=== PATIENT | male | born 1955 | race Caucasian/White ===

== ENCOUNTER 2023-02-28 00:18 | Day surgery (SDC) | payer MEDICARE, SELFPAY ==
[2023-02-08 13:50] VITALS: BMI 31.1
--- NOTE | 2023-02-26 08:27 | SUR.PREOP ---
Patient called regarding upcoming procedure. Reviewed preop instructions, appointment times, and procedure prep.
--- NOTE | 2023-02-26 13:54 | PM.HPGS ---
History of Present Illness History of Present Illness Consent: Risks, benefits, and alternatives have been discussed and questions answered. Patient agrees to proceed with procedure. Chief complaint: Personal h/o colonic polyps Narrative: Ferdinand Cheung is a 67 year old male referred for colon cancer screening. He has a history of polyps. His most recent exam was 5 years ago when he had a small polyp removed. Review of Systems Review of Systems: All systems reviewed & are unremarkable except as noted in HPI and below PMFSH Past Medical History Medical History 1st degree AV block Benign essential hypertension Blood donor BMI 30.0-30.9,adult BMI 31.0-31.9,adult Bradycardia DJD (degenerative joint disease), multiple sites Elevated serum creatinine Encounter for Medicare annual wellness exam Encounter for preventive health examination Encounter for routine adult health examination without abnormal findings Exposure to benzene Hearing loss Hx of colonic polyps Hx of headache Hyperlipidemia Hypothyroidism (acquired) Iron deficiency anemia Migraines Nevus On long-term drug therapy Right hip pain Soft tissue mass Tick bite Trigger finger of right hand Visual changes Vitamin D deficiency Surgical History Surgical History Hx of repair of rotator cuff Status post total replacement of right shoulder Family History Family History Mother Family history of primary malignant neoplasm of liver Grandparent Asthma Other Family history of malignant neoplasm of brain Social History Social History Smoking status: Never smoker Second hand tobacco smoke exposure: No Alcohol intake: never Alcohol use details: rare occasional Substance use: never Substance use type: does not use Lack of Transportation: No Lack of Food: Never True Current Housing: I Have Housing Concerned About Future Housing: No Difficulty Paying Gas/Electric Bills: No Difficulty Paying for Meds: No Currently Unemployed: No Education: Trade/Vocational Certificate Difficulty w/ Childcare or Family Care: No Living arrangements: with family Occupation/Education: retired Gender identity (if verbalized by the patient): Male Spiritual care concerns: No Meds Home Medications and Allergies Home Medications Medication Instructions Recorded Confirmed Type aspirin 81 mg tablet,delayed 81 mg PO DAILY 02/18/19 02/08/23 History release (Adult Low Dose Aspirin) multivitamin 1 tablet PO DAILY 02/18/19 02/08/23 History calcium carbonate 600 mg-vitamin 1 cap PO DAILY 07/21/19 02/08/23 History D3 12.5 mcg (500 unit) capsule (Calcium 600 with Vitamin D3) ascorbic acid (vitamin C) 1,000 mg 1 g PO DAILY 03/15/20 02/08/23 History tablet cholecalciferol (vitamin D3) 50 50 mcg PO DAILY 12/09/20 02/08/23 History mcg (2,000 unit) capsule omega-3 fatty acids 1,000 mg 2,000 mg PO BID 12/09/20 02/08/23 History capsule (Fish Oil Concentrate) levothyroxine 125 mcg tablet 125 mcg PO DAILY #90 tabs 03/27/22 02/08/23 Rx rosuvastatin 10 mg tablet (Crestor) 10 mg PO DAILY #90 tabs 03/27/22 02/08/23 Rx epinephrine 0.3 mg/0.3 mL 0.3 mg (0.3 mL) IM ONCE PRN 07/05/22 02/08/23 Rx injection, auto-injector (EpiPen hypersensitivity reaction #2 ea 2-Robbie) diltiazem HCl 240 mg capsule,24 See Rx Instructions .Route 01/01/23 02/08/23 Rx hr,extended release .COMPLEX #90 caps ferrous sulfate 325 mg (65 mg 325 mg PO DAILY 02/08/23 02/08/23 History iron) tablet Allergies Allergy/AdvReac Type Severity Reaction Status Date / Time Shrimp Allergy Unknown HIVES Uncoded 02/08/23 14:11 Exam Const: General: alert Orientation/consciousness: patient oriented x3 Resp: Auscultation: clear to auscultation
[2023-02-28 06:19] VITALS: BP 139/69; PULSE 50; RESP 18; TEMP 36.3; O2SAT 100; BMI 31.9
[2023-02-28] MEDS: LACTATED RINGERS 1,000 ML 150 ML IV CONT (06:32)
--- NOTE | 2023-02-28 07:06 | WPDANESEPPF ---
Anes - Initial Pre Proc Eval Procedure: Operation Date: 02/28/23 07:30 Proposed Procedures p Screening Colonoscopy - Dillan Dee MD Date/Time: 02/28/23 07:06 Surgeon: Dillan Dee MD Pre Op Diagnosis: Personal h/o colonic polyps Patient Data Age: 67 Gender: M Height: 1.73 m Weight: 95.4 kg Last Vital Signs Temp 36.3 C L 02/28/23 06:19 Pulse 50 L 02/28/23 06:19 Resp 18 02/28/23 06:19 BP 139/69 02/28/23 06:19 Pulse Ox 100 02/28/23 06:19 O2 Del Method Room Air 02/28/23 06:19 Allergies Allergy/AdvReac Type Severity Reaction Status Date / Time Shrimp Allergy Unknown HIVES Uncoded 02/08/23 14:11 Home Medications Medication Instructions Recorded Confirmed Type aspirin 81 mg tablet,delayed 81 mg PO DAILY 02/18/19 02/08/23 History release (Adult Low Dose Aspirin) multivitamin 1 tablet PO DAILY 02/18/19 02/08/23 History calcium carbonate 600 mg-vitamin 1 cap PO DAILY 07/21/19 02/08/23 History D3 12.5 mcg (500 unit) capsule (Calcium 600 with Vitamin D3) ascorbic acid (vitamin C) 1,000 mg 1 g PO DAILY 03/15/20 02/08/23 History tablet cholecalciferol (vitamin D3) 50 50 mcg PO DAILY 12/09/20 02/08/23 History mcg (2,000 unit) capsule omega-3 fatty acids 1,000 mg 2,000 mg PO BID 12/09/20 02/08/23 History capsule (Fish Oil Concentrate) levothyroxine 125 mcg tablet 125 mcg PO DAILY #90 tabs 03/27/22 02/08/23 Rx rosuvastatin 10 mg tablet (Crestor) 10 mg PO DAILY #90 tabs 03/27/22 02/08/23 Rx epinephrine 0.3 mg/0.3 mL 0.3 mg (0.3 mL) IM ONCE PRN 07/05/22 02/08/23 Rx injection, auto-injector (EpiPen hypersensitivity reaction #2 ea 2-Robbie) diltiazem HCl 240 mg capsule,24 See Rx Instructions .Route 01/01/23 02/08/23 Rx hr,extended release .COMPLEX #90 caps ferrous sulfate 325 mg (65 mg 325 mg PO DAILY 02/08/23 02/08/23 History iron) tablet Patient hx anesthesia problems: none Family hx anesthesia problems: none Results Review: All pre-operative results and documents have been reviewed as part of the pre-operative evaluation. [facility] Past Medical History Medical History 1st degree AV block Benign essential hypertension Blood donor BMI 30.0-30.9,adult BMI 31.0-31.9,adult Bradycardia DJD (degenerative joint disease), multiple sites Elevated serum creatinine Encounter for Medicare annual wellness exam Encounter for preventive health examination Encounter for routine adult health examination without abnormal findings Exposure to benzene Hearing loss Hx of colonic polyps Hx of headache Hyperlipidemia Hypothyroidism (acquired) Iron deficiency anemia Migraines Nevus On terminal supervisor drug therapy Right hip pain Soft tissue mass Tick bite Trigger finger of right hand Visual changes Vitamin D deficiency Surgical History Surgical History Hx of repair of rotator cuff Status post total replacement of right shoulder Family History Family History Mother Family history of primary malignant neoplasm of liver Grandparent Asthma Other Family history of malignant neoplasm of brain Social History Social History Smoking status: Never smoker Second hand tobacco smoke exposure: No Alcohol intake: never Alcohol use details: rare occasional Substance use: never Substance use type: does not use Lack of Transportation: No Lack of Food: Never True Current Housing: I Have Housing Concerned About Future Housing: No Difficulty Paying Gas/Electric Bills: No Difficulty Paying for Meds: No Currently Unemployed: No Education: Trade/Vocational Certificate Difficulty w/ Childcare or Family Care: No Living arrangements: with family Occupation/Education: retired Gender identity (if verbalized by the rubia
[2023-02-28 07:40] VITALS: BP 97/52; PULSE 39; RESP 15; O2SAT 100
[2023-02-28 07:49] VITALS: BP 118/53; PULSE 43; RESP 17; O2SAT 100
[2023-02-28 07:59] VITALS: BP 116/60; PULSE 37; RESP 14; O2SAT 100
--- NOTE | 2023-02-28 08:09 | SUR.PHASEII ---
Requested Dr. Thomason to bedside, patient HR in the 30's. Patient is in sinus bradycardia with P waves present. Per Dr. Thomason, ok to discharge patient if asymptomatic getting up to chair. Patient HR 40 BP 119/63 after getting up to chair. Patient voices no complaints at this time.
== END 2023-02-28 08:14 | disposition home or self-care (01) ==
PROVIDERS: PCP Internal Medicine; Visit Provider Internal Medicine Gastroenterology
PROC: 0DJD8ZZ Inspection of Lower Intestinal Tract, Via Natural or Artificial Opening Endoscopic (ICD-10-PCS; CPT 45378; principal; 2023-02-28 07:30)
DX: Z12.11 Encounter for screening for malignant neoplasm of colon (principal); K57.30 Diverticulosis of large intestine without perforation or abscess without bleeding; Z86.010 Personal history of colon polyps; I44.0 Atrioventricular block, first degree; E03.9 Hypothyroidism, unspecified; I10 Essential (primary) hypertension; E78.5 Hyperlipidemia, unspecified; D50.9 Iron deficiency anemia, unspecified; E55.9 Vitamin D deficiency, unspecified; Z79.82 Long term (current) use of aspirin; E66.9 Obesity, unspecified; Z68.32 Body mass index [BMI] 32.0-32.9, adult
CPT/HCPCS: G0105; J2704; J7120

== ENCOUNTER 2023-04-11 08:24 | Outpatient (CLI) | payer MEDICARE, SELFPAY ==
--- NOTE | 2023-04-11 08:41 | ECHO_ITS ---
Patient Info Name: Ferdinand Cheung Age: 67 years : 1955 Gender: Male Ht: 68 in Wt: 218 lbs BSA: 2.21 m2 HR: 40 bpm BP: 139 / 69 mmHg Heart Rhythm: Bradycardia Technical Quality: Good Exam Date: 04/11/2023 8:53 AM Exam Location: Echo Lab Patient Status: Outpatient Admit Date: 04/11/2023 Staff Ordering Physician: Kris Valerio MD Attending Provider: Kris Valerio MD Referring Physician: Iman SHAW; Exam Type: CA echo doppler color flow Study Info Indications R94.31 - Abnormal electrocardiogram ECG EKG Complete two-dimensional, color flow and Doppler transthoracic echocardiogram is performed. Summary 1. Complete two-dimensional, color flow and Doppler transthoracic echocardiogram is performed. 2. Left ventricular chamber dimension is normal. 3. Left ventricular systolic function is normal, estimated at 60-65%. 4. There is mild concentric increased left ventricular wall thickness. 5. The left ventricular diastolic function is grade I diastolic dysfunction. 6. E/e' 7 is not elevated. 7. Left atrial chamber dimension is mildly enlarged. 8. There is mild mitral valve regurgitation. 9. There is trace pulmonic regurgitation. Left Ventricle E/e' 7 is not elevated. Left ventricular chamber dimension is normal. Left ventricular systolic function is normal, estimated at 60-65%. There is mild concentric increased left ventricular wall thickness. The left ventricular diastolic function is grade I diastolic dysfunction. Right Ventricle Right ventricular chamber dimension is normal. Right ventricular systolic function is normal. Left Atria Left atrial chamber dimension is mildly enlarged. Right Atria Right atrial chamber dimension is normal. Aortic Valve The aortic valve is trileaflet. There is no aortic valve stenosis. There is no aortic valve regurgitation. Pulmonic Valve There is trace pulmonic regurgitation. Mitral Valve There is no mitral valve stenosis. There is mild mitral valve regurgitation. Tricuspid Valve There is no tricuspid valve regurgitation. Pericardium/Pleural There is no pericardial effusion. Inferior Vena Cava Normal inferior vena cava with >50% collapse upon inspiration consistent with normal right atrial pressure, 5 mmHg. Aorta The aortic root size at the sinus of Valsalva is normal. Left Ventricular Outflow Tract Name Value Normal LVOT 2D LVOT Diameter 2.5 cm LVOT Doppler LVOT Peak Gradient 3 mmHg LVOT Mean Gradient 1 mmHg LVOT VTI 20 cm LVOT VTI/AV VTI Ratio 0.6 LVOT Stroke Volume 99 ml LVOT CO 3.7 l/min LVOT CI 1.7 l/min/m2 Pulmonic Valve Name Value Normal PV Doppler PV Peak Gradient 4 mmHg PV Regurgitation Doppler
--- NOTE | 2023-04-11 11:00 | NEURO_ITS ---
Impression: # Complains of numbness of hands. ? # Bilateral mild Carpal Tunnel Syndrome # No ulnar neuropathy. ? # Needle/EMG exam mildly abnormal. Nerve Conduction Studies Anti Sensory Summary Table Stim Site NR Peak (ms) P-T Amp (?V) Site1 Site2 Delta-P (ms) Dist (cm) Tyrel (m/s) Left Median Anti Sensory (2-3nd Digit) Wrist 3.4 26.4 Wrist 2-3nd Digit 3.4 14.0 41 Wrist 3.5 39.2 Wrist 2-3nd Digit 3.4 14.0 41 Right Median Anti Sensory (2-3nd Digit) Wrist 3.4 16.5 Wrist 2-3nd Digit 3.4 14.0 41 Wrist 3.5 25.3 Wrist 2-3nd Digit 3.4 14.0 41 Left Radial Anti Sensory (Base 1st Digit) Wrist 2.0 15.0 Wrist Base 1st Digit 2.0 0.0 Right Radial Anti Sensory (Base 1st Digit) Wrist 2.4 13.6 Wrist Base 1st Digit 2.4 0.0 Left Ulnar Anti Sensory (5th Digit) Wrist 2.7 32.0 Wrist 5th Digit 2.7 14.0 52 Right Ulnar Anti Sensory (5th Digit) Wrist 2.6 17.5 Wrist 5th Digit 2.6 14.0 54 Motor Summary Table Stim Site NR Onset (ms) O-P Amp (mV) Site1 Site2 Delta-0 (ms) Dist (cm) Tyrel (m/s) Left Median Motor (Abd Poll Brev) Wrist 4.1 3.9 Elbow Wrist 5.5 32.0 58 Elbow 9.6 2.4 Right Median Motor (Abd Poll Brev) Wrist 4.3 2.1 Elbow Wrist 5.2 30.0 58 Elbow 9.5 1.6 Left Ulnar Motor (Abd Dig Minimi) Wrist 2.5 5.5 A Elbow Wrist 5.5 32.0 58 A Elbow 8.0 4.5 Right Ulnar Motor (Abd Dig Minimi) Wrist 2.3 5.1 A Elbow Wrist 5.8 33.0 57 A Elbow 8.1 4.5 F Wave Studies NR F-Lat (ms) L-R F-Lat (ms) Left Median (Mrkrs) (Abd Poll Brev) 30.38 0.34 Right Median (Mrkrs) (Abd Poll Brev) 30.04 0.34 Left Ulnar (Mrkrs) (Abd Dig Min) 30.25 0.91 Right Ulnar (Mrkrs) (Abd Dig Min) 29.34 0.91 EMG Side Muscle Nerve Root Ins Act Fibs Amp Dur Recrt Comment Right 1stDorInt Ulnar C8-T1 Nml Nml Nml Nml Nml Right Ext Indicis Radial (Post Int) C7-8 Nml Nml Nml Nml Nml Right Ext Digitorum Radial (Post Int) C7-8 Nml Nml Nml Nml Nml Right BrachioRad Radial C5-6 Nml Nml Nml Nml Nml Right PronatorTeres Median C6-7 Nml Nml Nml Nml Nml Right Abd Poll Brev Median C8-T1 Nml Nml Nml >12ms Reduced Left 1stDorInt Ulnar C8-T1 Nml Nml Nml Nml Nml Left Ext Indicis Radial (Post Int) C7-8 Nml Nml Nml Nml Nml Left Ext Digitorum Radial (Post Int) C7-8 Nml Nml Nml Nml Nml Left BrachioRad Radial C5-6 Nml Nml Nml Nml Nml Left PronatorTeres Median C6-7 Nml Nml Nml Nml Nml Left Abd Poll Brev Median C8-T1 Nml Nml Nml 12ms Reduced MTDD
== END 2023-04-11 08:25 | disposition home or self-care (01) ==
LOC: ANHCARD 08:26
PROVIDERS: PCP Internal Medicine; Visit Provider Internal Medicine
DX: G56.03 Carpal tunnel syndrome, bilateral upper limbs (principal); R29.898 Other symptoms and signs involving the musculoskeletal system; I45.10 Unspecified right bundle-branch block; R94.31 Abnormal electrocardiogram [ECG] [EKG]
CPT/HCPCS: 93306; 95886; 95911

== ENCOUNTER 2023-07-11 06:52 | Outpatient (CLI) | payer MEDICARE, SELFPAY ==
--- NOTE | ~2023-07-11 | XR_ITS ---
Right Knee Technique: AP, lateral, and sunrise views were obtained. Clinical History: Pain Findings: No fracture or dislocation is seen. Osseous alignment is anatomic. Minimal degenerative spu rring noted. Soft tissues are unremarkable. No joint effusion is seen. Impression: Minimal degenerative spurring.. Reviewed, dictated and finalized at location . Impression: Minimal degenerative spurring..
== END 2023-07-11 06:53 | disposition home or self-care (01) ==
PROVIDERS: PCP Internal Medicine; Visit Provider Internal Medicine
DX: M25.761 Osteophyte, right knee (principal); M25.562 Pain in left knee
CPT/HCPCS: 73562

== ENCOUNTER 2023-09-11 08:45 | Outpatient (RCR) | payer MEDICARE, SELFPAY ==
--- NOTE | 2023-08-21 13:49 | OPREHPOC ---
Outpatient Therapy Plan of Care This is a Multidisciplinary Plan of Care that may contain components documented by all disciplines (PT, OT, and ST.) PT Problem 1 PT Problem #1 Knowledge Deficit PT Goal 1 Goal Pt will be independent in HEP Pt will verbalize understanding of diagnosis and prognosis Target Visit 4 PT Problem 2 PT Problem #2 Impaired Strength PT Goal 1 Goal Pt will demo strength of 4+/5 in gluteus medius and mzxaimus Target Visit 4 PT Goal 1 Goal Pt will demo only mildly decreased flexibility of debi gastrocs Target Visit 4
--- NOTE | 2023-08-21 13:49 | PTOPEVAL1 ---
Assessment and note entered by Heather Diane, PT Evaluation Information Assessment Status Evaluation Diagnosis bilat knee osteoarthritis Therapy Conditions abnormal posture weakness Onset 05/2023 Subjective Information Was at car shop, last 15 minutes crossed his leg and when he stood up almost dropped . Left knee swelled and had to use a cane. Wanted MD to also look at right knee since it makes noise. Wants to strengthen knees with PT, currently they feel good , not weak. Has been working and moving dirt wiht shovel and wheel [id number] without issue. Mows and weed eats, cuts wood splits quite a bit of wood a year. Is actually behind on this because of knee. Assessment PT Clinical Summary Pt presents with diagnosis of debi knee arthritis. Currently pt has no pain in his knees however has an instance of greatly increased pain about 3 months ago. Evaluation shows good ROM debi knees with debi laterally deviating patella R>L, good strength with mildly decreased quad R>L, demos poor gluteal strength debi. Demo's good hamstring flexibility, fair hip flexor flexibility, poor gastroc flexibility, and tight iliotibial band R>L . Pt also demo's standing alignment deficits including high arches, forefoot adduction, and hammer toes debi. Pt will benefit from physical therapy in order to educate patient on appropriate home exercises to improve deficits and reduce incidents of pain and discomfort. Plan of Care Interventions Electrical Stimulation,Hot Pack/Cold Pack,Manual Therapy,Neuro Re-education,Patient/Caregiver Educati,Therapeutic Activities,Therapeutic Exercise,Self-Care/Home Management,Ultrasound PT Services Indicated Yes Treatment Frequency and 4 visits PRN Duration These treatments will address the objective and functional deficits as defined above. The patient will be advanced safely and appropriately in order for the patient to progress towards his/her prior level of function. Additional exercises will be introduced and as well as a comprehensive home exercise program upon discharge, if needed, ?to ensure carryover of functional gains achieved in the clinic. This treatment plan has been reviewed and agreement upon by the patient.
--- NOTE | 2023-09-11 09:57 | PTOPDC ---
Assessment and note entered by Samuel Hussein SPT Assessment Status Discharge Diagnosis bilat knee osteoarthritis ICD-10 Condition Codes (PT) Pain in left knee M25.562 Onset 05/2023 Subjective Information Pt states that he does feel looser in the hips but still notes more tightness in the R hip then left . He states that he feels stronger doing his exercises and has purchased ankle weights to progress hip strength. He states he currently has no pain and no longer feels limited by his knee pain. Assessment PT Clinical Summary Ferdinand reports to physical therapy with no current knee pain and no longer feels limited during his daily activities. He feels that the exercises and stretches have helped him and he is now more conscious about his LE position during standing and gait. Ferdinand showed improved in Yunior LE strength and muscle length. 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 Ferdinand is being discharged from physical therapy 09/11/2023 and was given education and updated HEP for LE strength and flexibility. Plan of Care PT Services Indicated No
== END 2023-09-11 10:45 | disposition home or self-care (01) ==
LOC: ANHHIPT 08:45
PROVIDERS: PCP Internal Medicine; Visit Provider Physician Assistant Surgical
DX: M17.0 Bilateral primary osteoarthritis of knee (principal)
CPT/HCPCS: 97110; 97116; 97161; 97750